=== PATIENT | female | born 1980 | race Caucasian/White ===

== ENCOUNTER 2025-02-02 23:34 | Emergency (ER) | payer OTHER ==
[~2025-02-02] VITALS: Ht 172.7 cm; Wt 97.3 kg
[~2025-02-02 23:34] MED LIST: NITR100C3 PO; ONDA-282 PO; PHEN-372 PO; SULF1TAB23 PO
[2025-02-03 00:35] LABS: KETONE, URINE AUTO RFX NEGATIVE (NEGATIVE); LEUKOCYTE ESTERASE UR AUTO RFX NEGATIVE (NEGATIVE); MUCUS, URINE RFX SMALL (NEGATIVE); NITRITE, URINE AUTO RFX NEGATIVE (NEGATIVE); RBC, URINE AUTO RFX 0 /HPF (0-3); SQUAM EPITHELIAL CELL UR AURFX 1 /HPF (0-6); WBC, URINE AUTO RFX 0 /HPF (0-3)
[2025-02-03] MEDS ORDERED: PHEN-372 PO (03:43)
[2025-02-03 04:06] VITALS: BP 133/77; TEMP 96.7; O2SAT 95
[2025-02-03] MEDS: PHENAZOPYRIDINE 100 MG TAB PO ONE (04:06)
== END 2025-02-03 04:09 | disposition home or self-care (01) ==
LOC: M ED 23:34
DX: R30.0 Dysuria (principal); Z79.899 Other long term (current) drug therapy

== ENCOUNTER 2025-04-11 08:38 | Emergency (ER) | payer OTHER, MEDICAID ==
[~2025-04-11] VITALS: Ht 172.7 cm; Wt 94.9 kg
[2025-04-11 08:40] VITALS: BP 136/79; TEMP 98.3; O2SAT 100
[2025-04-11 09:11] LABS: KETONE, URINE AUTO RFX NEGATIVE (NEGATIVE); LEUKOCYTE ESTERASE UR AUTO RFX 3+ (NEGATIVE); MUCUS, URINE RFX SMALL (NEGATIVE); NITRITE, URINE AUTO RFX NEGATIVE (NEGATIVE); RBC, URINE AUTO RFX 3 /HPF (0-3); SQUAM EPITHELIAL CELL UR AURFX 13 /HPF (0-6); WBC, URINE AUTO RFX 33 /HPF (0-3)
[2025-04-11] MEDS ORDERED: HYDR-3719 (10:19)
[2025-04-11] MEDS ORDERED: PREG150C2 (10:19)
[2025-04-11] MEDS ORDERED: OMEP40CA5 (10:19)
[2025-04-11] MEDS ORDERED: METH4PACK (10:19)
[2025-04-11] MEDS ORDERED: DULO1CAP5 (10:19)
[2025-04-11] MEDS ORDERED: PREG50CA3 (10:19)
[2025-04-11] MEDS ORDERED: ZOLP6.2526 (10:19)
[2025-04-11] MEDS ORDERED: PYRI1TAB5 PO (10:47)
== END 2025-04-11 10:53 | disposition home or self-care (01) ==
LOC: M ED 08:38
DX: R30.0 Dysuria (principal); M35.00 Sjogren syndrome, unspecified

== ENCOUNTER 2025-04-19 11:26 | Emergency (ER) | payer OTHER, MEDICAID ==
[~2025-04-19] VITALS: Ht 167.6 cm; Wt 93.2 kg
[~2025-04-19 11:26] MED LIST changes: +DULO1CAP5; +HYDR-3719; +METH4PACK; +OMEP40CA5; +PREG150C2; +PREG50CA3; +PYRI1TAB5 PO; +ZOLP6.2526
[2025-04-19 12:07] LABS: BASO # 0.0 10^3/uL (0.0-0.2); BASO % 0.7 % (0.0-1.0); EOS # 0.1 10^3/uL (0.0-0.5); EOS % 2.4 % (0.0-3.0); LYMPH # 1.3 10^3/uL (1.5-5.0); LYMPH % 42.8 % (24.0-44.0); MONO # 0.4 10^3/uL (0.0-0.8); MONO % 13.0 % (2.0-8.0); NEUTROPHILS # 1.2 10^3/uL (1.5-8.5); NEUTROPHILS % 40.8 % (36.0-66.0); PLATELET COUNT, AUTOMATED 232 10^3/uL (150-450)
[2025-04-19 13:12] LABS: CALCIUM LEVEL 8.5 MG/DL (8.5-10.1); CARBON DIOXIDE LEVEL 23 MMOL/L (20-31); CHLORIDE LEVEL 111 MMOL/L (98-107); CREATININE FOR GFR 0.73 MG/DL (0.55-1.30); GLOMERULAR FILTRATION RATE > 90.0 (>58); POTASSIUM SERUM 3.1 MMOL/L (3.5-5.1); SODIUM LEVEL 144 MMOL/L (136-145)
[2025-04-19 13:45] LABS: KETONE, URINE AUTO RFX NEGATIVE (NEGATIVE); MUCUS, URINE RFX LARGE (NEGATIVE); NITRITE, URINE AUTO RFX NEGATIVE (NEGATIVE); RBC, URINE AUTO RFX 1 /HPF (0-3); SQUAM EPITHELIAL CELL UR AURFX 8 /HPF (0-6); WBC, URINE AUTO RFX 9 /HPF (0-3)
[2025-04-19 13:46] LABS: LEUKOCYTE ESTERASE UR AUTO RFX 1+ (NEGATIVE)
[2025-04-19] MEDS: LIDOCAINE VISCOUS 2% SOLN 15 ML UDC PO ONE (14:27)
[2025-04-19] MEDS: MAALOX 30 ML SUSP *UDC PO ONE (14:27)
[2025-04-19] MEDS: NS (Normal Saline) 0.9% 1,000 ML IV ONE (14:28)
[2025-04-19] MEDS: PANTOPRAZOLE 40MG VIAL IV ONE (14:28)
[2025-04-19] MEDS: HYOSCYAMINE SULFATE 0.125 MG SUBL TABLET PO ONE (14:28)
[2025-04-19] MEDS ORDERED: ISOVUE-370 76% 100 ML VIAL As Ordered ONE (14:59)
[2025-04-19 15:02] LABS: CK-MB VALUE MASS < 1.0 NG/ML (<3.6)
[2025-04-19 15:06] LABS: CPK CREATINE PHOSPHOKINASE 50 U/L (34-145)
[2025-04-19] MEDS: POTASSIUM CHLORIDE 10MEQ SR TABLET PO ONE (15:51)
[2025-04-19] MEDS: ONDANSETRON 4MG 2ML VIAL IV ONE (15:51)
[2025-04-19 17:20] VITALS: TEMP 99
[2025-04-19] MEDS ORDERED: ONDA-282 PO (19:49)
[2025-04-19] MEDS ORDERED: SUCR1SS PO (19:49)
[2025-04-19 19:57] VITALS: BP 118/66; O2SAT 97
== END 2025-04-19 20:08 | disposition home or self-care (01) ==
LOC: M ED 11:26
DX: D72.819 Decreased white blood cell count, unspecified (principal); K21.9 Gastro-esophageal reflux disease without esophagitis; R11.10 Vomiting, unspecified; I10 Essential (primary) hypertension; M32.9 Systemic lupus erythematosus, unspecified; Z79.899 Other long term (current) drug therapy
CPT/HCPCS: 74177; 80048; 80503; 81001; 82550; 82553; 83605; 84484; 85025; 87086; 87486; 87581; 87633; 87798; 93005; 96361; 96374; 96375; 99284; J2405; J2470; Q9967

== ENCOUNTER → 2025-05-03 | Outpatient (REF) | payer OTHER ==
[~2025-05-03] MED LIST changes: +SUCR1SS PO
[2025-05-03 17:59] LABS: APPEARANCE, URINE HAZY (CLEAR); BACTERIA, URINE AUTO NEGATIVE (NEGATIVE); BILIRUBIN, URINE AUTO 1+ (NEGATIVE); BLOOD, URINE BLOOD NEGATIVE (NEGATIVE); CALCIUM OXALATE CRYSTALS SMALL; GLUCOSE, URINE (UA) AUTO NEGATIVE (NEGATIVE); KETONE, URINE AUTO NEGATIVE (NEGATIVE); LEUKOCYTE ESTERASE, URINE AUTO 2+ (NEGATIVE); MUCUS, URINE SMALL (NEGATIVE); NITRITE, URINE AUTO NEGATIVE (NEGATIVE); PROTEIN, URINE AUTO 1+ mg/dL (NEGATIVE); RBC, URINE AUTO 2 /HPF (0-3); SPECIFIC GRAVITY URINE AUTO 1.032 (1.002-1.035); SQUAMOUS EPITHELIAL CELL UR AU 5 /HPF (0-6); UROBILINOGEN, URINE AUTO 0.2 mg/dL (0.0-2.0); WBC, URINE AUTO 5 /HPF (0-3)
[2025-05-03 18:07] LABS: ALT/SGPT 20 U/L (7.0-40); AST/SGOT 20 U/L (<34); CALCIUM LEVEL 8.3 MG/DL (8.5-10.1); CARBON DIOXIDE LEVEL 24 MMOL/L (20-31); CHLORIDE LEVEL 108 MMOL/L (98-107); CREATININE FOR GFR 0.68 MG/DL (0.55-1.30); GLOMERULAR FILTRATION RATE > 90.0 (>58); POTASSIUM SERUM 3.6 MMOL/L (3.5-5.1); RHEUMATOID FACTOR QUANT < 3.5 IU/ML (<14); SODIUM LEVEL 144 MMOL/L (136-145)
[2025-05-03 18:11] LABS: HEPATITIS B SURFACE ANTIBODY NEGATIVE (POSITIVE); VITAMIN B12 LEVEL 302 PG/ML (211-911)
[2025-05-03 18:14] LABS: BASO # 0.0 10^3/uL (0.0-0.2); BASO % 0.7 % (0.0-1.0); EOS # 0.0 10^3/uL (0.0-0.5); EOS % 1.3 % (0.0-3.0); LYMPH # 0.4 10^3/uL (1.5-5.0); LYMPH % 28.9 % (24.0-44.0); MONO # 0.1 10^3/uL (0.0-0.8); MONO % 6.6 % (2.0-8.0); NEUTROPHILS % 59.2 % (36.0-66.0); PLATELET COUNT, AUTOMATED 121 10^3/uL (150-450)
[2025-05-03 18:43] LABS: HEPATITIS C VIRUS ABY INDEX < 0.02 INDEX (<0.8)
[2025-05-03 19:37] LABS: NEUTROPHILS # 0.9 10^3/uL (1.5-8.5)
[2025-05-04 16:55] LABS: TOTAL PROTEIN,RANDOM URINE 74.5 MG/DL (0.0-14.0)
[2025-05-04 18:08] LABS: CRYOGLOBULINS NEGATIVE (NEGATIVE)
[2025-05-05 07:06] LABS: PROTEIN, TOTAL SO 6.1 g/dL (6.1-8.1)
[2025-05-06 06:37] LABS: ALBUMIN SO 3.8 g/dL (3.8-4.8); ALPHA 1 GLOBULINS SO 0.3 g/dL (0.2-0.3); ALPHA 2 GLOBULINS SO 0.5 g/dL (0.5-0.9); BETA 2 GLOBULIN SO 0.3 g/dL (0.2-0.5); BETA GLOBULIN SO 0.4 g/dL (0.4-0.6); GAMMA GLOBULINS SO 0.7 g/dL (0.8-1.7)
== END ==
LOC: M SFHCLERA 10:32
PROVIDERS: ATTEND Internal Medicine
DX: M35.00 Sjogren syndrome, unspecified (principal); D70.8 Other neutropenia

== ENCOUNTER → 2025-05-09 | Outpatient (REF) | payer OTHER ==
[2025-05-09 18:23] LABS: ALT/SGPT 18 U/L (7.0-40); AST/SGOT 18 U/L (<34); CALCIUM LEVEL 8.2 MG/DL (8.5-10.1); CARBON DIOXIDE LEVEL 25 MMOL/L (20-31); CHLORIDE LEVEL 110 MMOL/L (98-107); CREATININE FOR GFR 0.69 MG/DL (0.55-1.30); GLOMERULAR FILTRATION RATE > 90.0 (>58); POTASSIUM SERUM 3.3 MMOL/L (3.5-5.1); SODIUM LEVEL 144 MMOL/L (136-145)
[2025-05-09 18:27] LABS: BASO # 0.0 10^3/uL (0.0-0.2); BASO % 0.3 % (0.0-1.0); EOS # 0.2 10^3/uL (0.0-0.5); EOS % 5.4 % (0.0-3.0); LYMPH # 1.9 10^3/uL (1.5-5.0); LYMPH % 57.1 % (24.0-44.0); MONO # 0.5 10^3/uL (0.0-0.8); MONO % 14.6 % (2.0-8.0); NEUTROPHILS % 22.3 % (36.0-66.0); PLATELET COUNT, AUTOMATED 108 10^3/uL (150-450)
[2025-05-09 20:10] LABS: NEUTROPHILS # 0.8 10^3/uL (1.5-8.5)
== END ==
LOC: M SFHCLERA 09:44
PROVIDERS: ATTEND Internal Medicine
DX: T45.1X5A Adverse effect of antineoplastic and immunosuppressive drugs, initial encounter (principal)

== ENCOUNTER → 2025-05-18 | Outpatient (REF) | payer OTHER ==
[~2025-05-18] MED LIST changes: +CARA1TAB6 PO; +CEFD300C PO; +CYPR4TAB36; +HYDR200T46; +HYDR50TA70; +LYRI200C PO; +NABU-71
[2025-05-18 10:50] LABS: BASO # 0.0 10^3/uL (0.0-0.2); BASO % 0.3 % (0.0-1.0); EOS # 0.1 10^3/uL (0.0-0.5); EOS % 2.3 % (0.0-3.0); LYMPH # 1.1 10^3/uL (1.5-5.0); LYMPH % 28.2 % (24.0-44.0); MONO # 0.5 10^3/uL (0.0-0.8); MONO % 12.5 % (2.0-8.0); NEUTROPHILS # 2.2 10^3/uL (1.5-8.5); NEUTROPHILS % 56.2 % (36.0-66.0); PLATELET COUNT, AUTOMATED 332 10^3/uL (150-450)
[2025-05-19 14:22] LABS: FREE KAPPA LIGHT CHAINS SERUM 26.8 mg/L (3.3-19.4); FREE LAMBDA LIGHT CHAINS SERUM 29.3 mg/L (5.7-26.3); KAPPA/LAMBDA RATIO SERUM 0.91 (0.26-1.65)
[2025-05-20 15:22] LABS: PROTEIN CREATININE RATIO 345 mg/g creat (24-184); T PROTEIN CREATININE RATIO 0.345 (0.024-0.184); UPEP CREATININE 200 mg/dL (20-275); UPEP TOTAL PROTEIN 69 mg/dL (5-24)
== END ==
LOC: M PLALAB 10:31
PROVIDERS: ATTEND Nurse Practitioner Family
DX: M35.00 Sjogren syndrome, unspecified (principal); R60.0 Localized edema; R77.8 Other specified abnormalities of plasma proteins

== ENCOUNTER → 2025-05-18 | Outpatient (REF) | payer OTHER ==
[2025-05-18 10:50] LABS: BASO # 0.0 10^3/uL (0.0-0.2); BASO % 0.5 % (0.0-1.0); EOS # 0.1 10^3/uL (0.0-0.5); EOS % 1.6 % (0.0-3.0); LYMPH # 1.1 10^3/uL (1.5-5.0); LYMPH % 29.8 % (24.0-44.0); MONO # 0.5 10^3/uL (0.0-0.8); MONO % 13.9 % (2.0-8.0); NEUTROPHILS # 2.1 10^3/uL (1.5-8.5); NEUTROPHILS % 53.9 % (36.0-66.0); PLATELET COUNT, AUTOMATED 317 10^3/uL (150-450)
[2025-05-18 10:54] LABS: CALCIUM LEVEL 8.7 MG/DL (8.5-10.1); CARBON DIOXIDE LEVEL 23.0 MMOL/L (20-31); CHLORIDE LEVEL 109.0 MMOL/L (98-107); CREATININE FOR GFR 0.89 MG/DL (0.55-1.30); GLOMERULAR FILTRATION RATE 81.4 (>58); POTASSIUM SERUM 3.9 MMOL/L (3.5-5.1); SODIUM LEVEL 143.0 MMOL/L (136-145)
== END ==
LOC: M PLALAB 10:30
PROVIDERS: ATTEND Internal Medicine
DX: D64.9 Anemia, unspecified (principal)

== ENCOUNTER 2025-05-19 15:56 | Emergency (ER) | payer OTHER ==
[~2025-05-19] VITALS: Ht 152.4 cm; Wt 90.9 kg
[~2025-05-19 15:56] MED LIST changes: -CARA1TAB6 PO; -CEFD300C PO; -CYPR4TAB36; -DULO1CAP5; +DULO1CAP5 PO; -HYDR200T46; -HYDR50TA70; -LYRI200C PO; -NABU-71
[2025-05-19] MEDS ORDERED: HYDR200T46 PO (16:07)
[2025-05-19] MEDS ORDERED: NABU-71 (16:07)
[2025-05-19] MEDS ORDERED: CYPR4TAB36 (16:07)
[2025-05-19] MEDS ORDERED: LYRI200C PO (16:07)
[2025-05-19] MEDS ORDERED: HYDR50TA70 (16:07)
[2025-05-19 16:47] LABS: BASO # 0.0 10^3/uL (0.0-0.2); BASO % 0.3 % (0.0-1.0); EOS # 0.0 10^3/uL (0.0-0.5); EOS % 0.0 % (0.0-3.0); LYMPH # 1.5 10^3/uL (1.5-5.0); LYMPH % 40.1 % (24.0-44.0); MONO # 0.4 10^3/uL (0.0-0.8); MONO % 10.3 % (2.0-8.0); NEUTROPHILS # 1.8 10^3/uL (1.5-8.5); NEUTROPHILS % 49.0 % (36.0-66.0); PLATELET COUNT, AUTOMATED 298 10^3/uL (150-450)
[2025-05-19 17:21] LABS: ALT/SGPT 13 U/L (7.0-40); AST/SGOT 19 U/L (<34); CALCIUM LEVEL 8.4 MG/DL (8.5-10.1); CARBON DIOXIDE LEVEL 22 MMOL/L (20-31); CHLORIDE LEVEL 109 MMOL/L (98-107); CK-MB VALUE MASS < 1.0 NG/ML (<3.6); CREATININE FOR GFR 0.65 MG/DL (0.55-1.30); GLOMERULAR FILTRATION RATE > 90.0 (>58); POTASSIUM SERUM 3.3 MMOL/L (3.5-5.1); SODIUM LEVEL 141 MMOL/L (136-145)
[2025-05-19 17:22] LABS: CPK CREATINE PHOSPHOKINASE 51 U/L (34-145)
[2025-05-19 17:34] LABS: HCG, SERUM QUALITATIVE NEGATIVE (NEGATIVE)
[2025-05-19] MEDS: NS (Normal Saline) 0.9% 1,000 ML IV ONE (18:20)
[2025-05-19] MEDS: PANTOPRAZOLE 40MG VIAL IV ONE (18:20)
[2025-05-19] MEDS: ONDANSETRON 4MG/2ML VIAL IV ONE (18:20)
[2025-05-19] MEDS: SUCRALFATE 1 GM TAB PO ONE (18:20)
[2025-05-19 18:42] VITALS: TEMP 100.3
[2025-05-19 18:47] LABS: KETONE, URINE AUTO RFX NEGATIVE (NEGATIVE); LEUKOCYTE ESTERASE UR AUTO RFX 3+ (NEGATIVE); MUCUS, URINE RFX MODERATE (NEGATIVE); NITRITE, URINE AUTO RFX POSITIVE (NEGATIVE); RBC, URINE AUTO RFX 3 /HPF (0-3); SQUAM EPITHELIAL CELL UR AURFX 4 /HPF (0-6); WBC, URINE AUTO RFX TNTC /HPF (0-3)
[2025-05-19] MEDS: cefTRIAXone SOD 1 GM in DEXTROSE 5% (D5W) ADV/MINI-BAG 50 ML IV ONE (19:46)
[2025-05-19] MEDS: ACETAMINOPHEN 500 MG TAB PO ONE (19:46)
[2025-05-19 20:16] VITALS: BP 119/76
[2025-05-19] MEDS ORDERED: CEFD300C PO (20:37)
[2025-05-19] MEDS ORDERED: CARA1TAB6 PO (20:37)
[2025-05-19] MEDS ORDERED: ONDA-282 PO (20:37)
[2025-05-19 20:41] VITALS: O2SAT 99
== END 2025-05-19 20:56 | disposition home or self-care (01) ==
LOC: M ED 15:56
DX: N10 Acute pyelonephritis (principal); I10 Essential (primary) hypertension; K21.9 Gastro-esophageal reflux disease without esophagitis; M35.00 Sjogren syndrome, unspecified; Z79.899 Other long term (current) drug therapy
CPT/HCPCS: 71045; 80048; 80076; 81001; 82550; 82553; 83605; 83690; 84484; 84703; 85025; 87088; 87186; 93005; 93041; 94760; 96374; 96375; 99285; J0696; J2405; J2470

== ENCOUNTER → 2025-05-24 | Outpatient (REF) | payer MEDICAID, OTHER ==
[~2025-05-24] MED LIST changes: +CARA1TAB6 PO; +CEFD1CAP9; +CEFD300C PO; +CEFP200T; +CYPR4TAB36; +HYDR200T46 PO; +HYDR50TA70; +LYRI200C PO; +METH-1164; +NABU-71; +POTA-298 PO
[2025-05-24 19:01] LABS: ALT/SGPT 12 U/L (7.0-40); AST/SGOT 13 U/L (<34); CALCIUM LEVEL 8.7 MG/DL (8.5-10.1); CARBON DIOXIDE LEVEL 21 MMOL/L (20-31); CHLORIDE LEVEL 110 MMOL/L (98-107); CREATININE FOR GFR 0.70 MG/DL (0.55-1.30); GLOMERULAR FILTRATION RATE > 90.0 (>58); POTASSIUM SERUM 3.5 MMOL/L (3.5-5.1); SODIUM LEVEL 143 MMOL/L (136-145)
[2025-05-24 19:10] LABS: BASO # 0.0 10^3/uL (0.0-0.2); BASO % 0.2 % (0.0-1.0); EOS # 0.0 10^3/uL (0.0-0.5); EOS % 0.0 % (0.0-3.0); LYMPH # 1.3 10^3/uL (1.5-5.0); LYMPH % 27.3 % (24.0-44.0); MONO # 0.4 10^3/uL (0.0-0.8); MONO % 8.4 % (2.0-8.0); NEUTROPHILS # 3.1 10^3/uL (1.5-8.5); NEUTROPHILS % 63.9 % (36.0-66.0); PLATELET COUNT, AUTOMATED 286 10^3/uL (150-450)
[2025-05-26 07:49] LABS: PROTEIN, TOTAL SO 6.8 g/dL (6.1-8.1)
== END ==
LOC: M SFHCLERA 10:18
PROVIDERS: ATTEND Internal Medicine
DX: N39.0 Urinary tract infection, site not specified (principal); R77.9 Abnormality of plasma protein, unspecified

== ENCOUNTER 2025-05-26 10:06 | Emergency (ER) | payer OTHER ==
[~2025-05-26] VITALS: Ht 162.6 cm; Wt 98.4 kg
[~2025-05-26 10:06] MED LIST changes: -CEFD1CAP9; -CEFP200T; -METH-1164; -POTA-298 PO
[2025-05-26] MEDS ORDERED: CEFP200T (10:20)
[2025-05-26] MEDS ORDERED: METH-1164 (10:20)
[2025-05-26] MEDS ORDERED: CEFD1CAP9 (10:20)
[2025-05-26 11:35] LABS: BASO # 0.0 10^3/uL (0.0-0.2); BASO % 0.2 % (0.0-1.0); EOS # 0.0 10^3/uL (0.0-0.5); EOS % 0.4 % (0.0-3.0); LYMPH # 1.7 10^3/uL (1.5-5.0); LYMPH % 19.9 % (24.0-44.0); MONO # 0.7 10^3/uL (0.0-0.8); MONO % 7.9 % (2.0-8.0); NEUTROPHILS # 6.1 10^3/uL (1.5-8.5); NEUTROPHILS % 71.2 % (36.0-66.0); PLATELET COUNT, AUTOMATED 239 10^3/uL (150-450)
[2025-05-26 12:02] LABS: CALCIUM LEVEL 8.9 MG/DL (8.5-10.1); CARBON DIOXIDE LEVEL 21 MMOL/L (20-31); CHLORIDE LEVEL 112 MMOL/L (98-107); CREATININE FOR GFR 0.76 MG/DL (0.55-1.30); GLOMERULAR FILTRATION RATE > 90.0 (>58); POTASSIUM SERUM 2.8 MMOL/L (3.5-5.1); SODIUM LEVEL 145 MMOL/L (136-145)
[2025-05-26] MEDS: POTASSIUM CHLORIDE 10MEQ SR TABLET PO ONE (12:14)
[2025-05-26 12:26] LABS: ALT/SGPT 13 U/L (7.0-40); AST/SGOT 15 U/L (<34); CK-MB VALUE MASS < 1.0 NG/ML (<3.6); CPK CREATINE PHOSPHOKINASE 63 U/L (34-145)
[2025-05-26 13:13] LABS: KETONE, URINE AUTO RFX NEGATIVE (NEGATIVE); MUCUS, URINE RFX SMALL (NEGATIVE); NITRITE, URINE AUTO RFX NEGATIVE (NEGATIVE); RBC, URINE AUTO RFX 1 /HPF (0-3); SQUAM EPITHELIAL CELL UR AURFX 14 /HPF (0-6); WBC, URINE AUTO RFX 4 /HPF (0-3)
[2025-05-26 13:14] LABS: LEUKOCYTE ESTERASE UR AUTO RFX TRACE (NEGATIVE)
[2025-05-26 13:15] VITALS: O2SAT 93
[2025-05-26 13:30] VITALS: BP 148/84
[2025-05-26] MEDS ORDERED: POTA-298 PO (13:30)
[2025-05-26 13:35] VITALS: TEMP 97.7
[2025-05-28] MEDS ORDERED: BUPR150T12 (10:08)
[2025-05-28] MEDS ORDERED: QUET1TAB17 (10:08)
[2025-05-28] MEDS ORDERED: DULO1CAP6 (10:08)
== END 2025-05-26 13:46 | disposition home or self-care (01) ==
LOC: M ED 10:06
DX: R30.0 Dysuria (principal); E87.6 Hypokalemia; I10 Essential (primary) hypertension; M32.9 Systemic lupus erythematosus, unspecified; Z79.899 Other long term (current) drug therapy

== ENCOUNTER 2025-05-28 09:55 | Emergency (ER) | payer OTHER ==
[~2025-05-28] VITALS: Ht 165.1 cm; Wt 89.2 kg
[~2025-05-28 09:55] MED LIST changes: +CEFD1CAP9; +CEFP200T PO; -CYPR4TAB36; +CYPR4TAB36 PO; +HYDR-3719 PO; -HYDR50TA70; +HYDR50TA70 PO; +METH-1164 PO; -OMEP40CA5; +OMEP40CA5 PO; +POTA-298 PO; -PREG150C2; +PREG150C2 PO; -PREG50CA3; +PREG50CA3 PO; -ZOLP6.2526; +ZOLP6.2526 PO
[2025-05-28] MEDS ORDERED: BUPR150T12 PO (10:08)
[2025-05-28] MEDS ORDERED: DULO1CAP6 PO (10:08)
[2025-05-28] MEDS ORDERED: QUET1TAB17 PO (10:08)
[2025-05-28] MEDS: LIDOCAINE VISCOUS 2% SOLN 15 ML UDC PO ONE (10:37)
[2025-05-28] MEDS: MAALOX 30 ML SUSP *UDC PO ONE (10:37)
[2025-05-28 10:39] LABS: KETONE, URINE AUTO RFX NEGATIVE (NEGATIVE); LEUKOCYTE ESTERASE UR AUTO RFX 2+ (NEGATIVE); MUCUS, URINE RFX SMALL (NEGATIVE); NITRITE, URINE AUTO RFX NEGATIVE (NEGATIVE); RBC, URINE AUTO RFX 2 /HPF (0-3); SQUAM EPITHELIAL CELL UR AURFX 12 /HPF (0-6); WBC, URINE AUTO RFX 12 /HPF (0-3)
[2025-05-28 12:12] VITALS: BP 147/73; TEMP 98.8; O2SAT 98
[2025-05-29] MEDS ORDERED: PRED10TA2 PO (14:48)
[2025-05-29] MEDS ORDERED: ONDA-282 PO (14:48)
[2025-05-29] MEDS ORDERED: TRIA1CR80 TOP (14:48)
== END 2025-05-28 12:15 | disposition home or self-care (01) ==
LOC: M ED 09:55
DX: N39.0 Urinary tract infection, site not specified (principal); I10 Essential (primary) hypertension; K21.9 Gastro-esophageal reflux disease without esophagitis; M32.9 Systemic lupus erythematosus, unspecified; Z79.1 Long term (current) use of non-steroidal anti-inflammatories (NSAID); Z79.899 Other long term (current) drug therapy; Z79.52 Long term (current) use of systemic steroids

== ENCOUNTER 2025-05-29 09:28 | Inpatient (IN) | payer OTHER ==
[~2025-05-29] VITALS: Ht 162.6 cm; Wt 87.6 kg
[~2025-05-29 09:28] MED LIST changes: +BUPR150T12 PO; +DULO1CAP6 PO; +QUET1TAB17 PO
[2025-05-29] MEDS: ACETAMINOPHEN *IV* 1,000 MG in IV 1 EA IV ONE (11:41)
[2025-05-29 11:55] LABS: BASO # 0.0 10^3/uL (0.0-0.2); BASO % 0.2 % (0.0-1.0); EOS # 0.0 10^3/uL (0.0-0.5); EOS % 0.6 % (0.0-3.0); LYMPH # 1.5 10^3/uL (1.5-5.0); LYMPH % 31.2 % (24.0-44.0); MONO # 0.5 10^3/uL (0.0-0.8); MONO % 10.5 % (2.0-8.0); NEUTROPHILS # 2.7 10^3/uL (1.5-8.5); NEUTROPHILS % 57.3 % (36.0-66.0); PLATELET COUNT, AUTOMATED 222 10^3/uL (150-450)
[2025-05-29 12:28] LABS: CALCIUM LEVEL 8.6 MG/DL (8.5-10.1); CARBON DIOXIDE LEVEL 22 MMOL/L (20-31); CHLORIDE LEVEL 110 MMOL/L (98-107); CREATININE FOR GFR 0.66 MG/DL (0.55-1.30); GLOMERULAR FILTRATION RATE > 90.0 (>58); POTASSIUM SERUM 3.0 MMOL/L (3.5-5.1); SODIUM LEVEL 143 MMOL/L (136-145)
[2025-05-29] MEDS ORDERED: ONDA-282 PO (14:48)
[2025-05-29] MEDS ORDERED: TRIA1CR80 TOP (14:48)
[2025-05-29] MEDS ORDERED: PRED10TA2 PO (14:48)
[2025-05-29] MEDS ORDERED: HOME MED LIST COMPLETE! XX SCH (14:50)
[2025-05-29] MEDS ORDERED: ONDANSETRON 4MG ORAL DISINTEGRATING TAB PO PRN (16:20)
[2025-05-29] MEDS ORDERED: TRIAMCINOLONE ACET 0.1% CREAM 80GM TOP PRN (16:20)
[2025-05-29] MEDS ORDERED: CYPROHEPTADINE 4 MG TAB PO PRN (16:20)
[2025-05-29] MEDS: POTASSIUM CHLORIDE 10MEQ SR TABLET PO SCH (16:26)
[2025-05-29] MEDS: KCL 20MEQ in NS 1000ML 1,000 ML IV SCH (16:26)
[2025-05-29 16:34] LABS: MAGNESIUM LEVEL 1.8 MG/DL (1.8-2.4)
[2025-05-29 17:38] VITALS: TEMP 97.6; O2SAT 100
[2025-05-29] MEDS: buPROPion **XL** 150 MG TABLET PO SCH (19:11)
[2025-05-29 20:00] VITALS: BP 116/75; TEMP 100.6; O2SAT 98
[2025-05-29] MEDS ORDERED: CEFPODOXIME PROXETIL 200 MG TABLET PO SCH (21:00)
[2025-05-29] MEDS: PREGABALIN 100 MG CAP PO SCH (21:44)
[2025-05-29] MEDS: ASPIRIN 81 MG CHEWABLE TABLET PO SCH (21:44)
[2025-05-29] MEDS: CEFPODOXIME PROXETIL 200 MG TABLET PO SCH (21:44)
[2025-05-29] MEDS: OMEPRAZOLE 20MG CAP PO SCH (21:45)
[2025-05-29] MEDS: HYDROXYCHLOROQUINE 200 MG TAB PO SCH (21:46)
[2025-05-29] MEDS: MAG SULF 1GM/100ML (MAG RUN) 1 GM in IV 1 EA IV ONE (21:46)
[2025-05-29] MEDS: ACETAMINOPHEN 325 MG TAB PO PRN (21:46)
[2025-05-29] MEDS: MICONAZOLE-7 VAGINAL 2% CREAM 47.7 GM PV SCH (21:47)
[2025-05-29 22:24] LABS: ALT/SGPT 13.0 U/L (7.0-40); AST/SGOT 16.0 U/L (<34)
[2025-05-30 00:23] VITALS: BP 117/74; TEMP 99.4; O2SAT 97
[2025-05-30 04:00] VITALS: BP 109/70; TEMP 99.8; O2SAT 98
[2025-05-30 06:11] LABS: PLATELET COUNT, AUTOMATED 199 10^3/uL (150-450)
[2025-05-30 06:25] LABS: CALCIUM LEVEL 8.0 MG/DL (8.5-10.1); CARBON DIOXIDE LEVEL 21 MMOL/L (20-31); CHLORIDE LEVEL 113 MMOL/L (98-107); CREATININE FOR GFR 0.58 MG/DL (0.55-1.30); GLOMERULAR FILTRATION RATE > 90.0 (>58); POTASSIUM SERUM 3.4 MMOL/L (3.5-5.1); SODIUM LEVEL 145 MMOL/L (136-145)
[2025-05-30 07:44] LABS: APPEARANCE, URINE CLOUDY (CLEAR); BACTERIA, URINE AUTO 1+ (NEGATIVE); BILIRUBIN, URINE AUTO 1+ (NEGATIVE); BLOOD, URINE BLOOD NEGATIVE (NEGATIVE); CALCIUM OXALATE CRYSTALS LARGE; GLUCOSE, URINE (UA) AUTO NEGATIVE (NEGATIVE); KETONE, URINE AUTO NEGATIVE (NEGATIVE); LEUKOCYTE ESTERASE, URINE AUTO 2+ (NEGATIVE); MUCUS, URINE LARGE (NEGATIVE); NITRITE, URINE AUTO NEGATIVE (NEGATIVE); PROTEIN, URINE AUTO 2+ mg/dL (NEGATIVE); RBC, URINE AUTO 53 /HPF (0-3); SPECIFIC GRAVITY URINE AUTO 1.032 (1.002-1.035); SQUAMOUS EPITHELIAL CELL UR AU 20 /HPF (0-6); UROBILINOGEN, URINE AUTO 0.2 mg/dL (0.0-2.0); WBC, URINE AUTO 61 /HPF (0-3)
[2025-05-30] MEDS: POTASSIUM CHLORIDE 10MEQ SR TABLET PO SCH (08:14)
[2025-05-30 11:38] VITALS: BP 114/75; TEMP 98.3; O2SAT 98
[2025-05-30 19:54] VITALS: BP 117/65; TEMP 97.6; O2SAT 100
[2025-05-30] MEDS: predniSONE 10 MG TAB PO SCH (20:47)
[2025-05-30 23:50] VITALS: BP 118/68; TEMP 97.6; O2SAT 99
[2025-05-31] VITALS (9 sets, daily range): BP systolic 109–159; BP diastolic 67–88; TEMP 97.7–99.2; O2SAT 95–99
[2025-05-31 06:19] LABS: PLATELET COUNT, AUTOMATED 191 10^3/uL (150-450)
[2025-05-31 06:40] LABS: CALCIUM LEVEL 8.0 MG/DL (8.5-10.1); CARBON DIOXIDE LEVEL 21 MMOL/L (20-31); CHLORIDE LEVEL 110 MMOL/L (98-107); CREATININE FOR GFR 0.46 MG/DL (0.55-1.30); GLOMERULAR FILTRATION RATE > 90.0 (>58); POTASSIUM SERUM 4.1 MMOL/L (3.5-5.1); SODIUM LEVEL 141 MMOL/L (136-145)
[2025-05-31] MEDS: LR 1,000 ML IV SCH (08:08)
[2025-05-31] MEDS ORDERED: MIDAZOLAM INJ 2 MG/2 ML VIAL As Ordered ONE (08:37)
[2025-05-31] MEDS ORDERED: ROCURONIUM BROMIDE 50MG/5ML VIAL As Ordered ONE (08:37)
[2025-05-31] MEDS ORDERED: SUGAMMADEX SODIUM 200 MG/2 ML VIAL As Ordered ONE (08:37)
[2025-05-31] MEDS ORDERED: LIDOCAINE 2% 100 MG/5 ML SDV (FOR ANES.) As Ordered ONE (08:37)
[2025-05-31] MEDS ORDERED: dexAMETHasone 4 MG/ML 1 ML VIAL As Ordered ONE (08:38)
[2025-05-31] MEDS ORDERED: KETOROLAC 30 MG/ML 1 ML VIAL As Ordered ONE (08:38)
[2025-05-31] MEDS ORDERED: ONDANSETRON 4MG/2ML VIAL As Ordered ONE (08:38)
[2025-05-31 08:49] LABS: URINE PREG TEST NEGATIVE (NEGATIVE)
[2025-05-31] MEDS ORDERED: predniSONE 10 MG TAB PO SCH (09:00)
[2025-05-31] MEDS ORDERED: SUCCINYLCHOLINE 100MG/5ML SYRINGE As Ordered ONE (09:41)
[2025-05-31] MEDS: MIDAZOLAM INJ 2 MG/2 ML VIAL IV PRN (10:03)
[2025-05-31] MEDS: LIDOCAINE 1% SDV 5 ML VIAL PN ONE (10:04)
[2025-05-31] MEDS: ROPIvacaine 0.5% 30ML VIAL PN ONE (10:04)
[2025-05-31] MEDS ORDERED: ACETAMINOPHEN 1000MG/100ML IV BAG As Ordered ONE (11:12)
[2025-05-31] MEDS ORDERED: HYDROmorphone HCL 2 MG/ML 1 ML VIAL As Ordered ONE (11:18)
[2025-05-31] MEDS ORDERED: MORPHINE 2 MG/ML 1 ML VIAL IV PRN (12:10)
[2025-05-31] MEDS ORDERED: HYDROMORPHONE HCL 0.5 MG/0.5 ML SYRINGE IV PRN (12:10)
[2025-05-31] MEDS: ceFAZolin SODIUM 2 GM in DEXTROSE 5% (D5W) ADV/MINI-BAG 50 ML IV SCH (18:06)
[2025-05-31] MEDS: FLUCONAZOLE 50 MG TABLET PO ONE (18:32)
[2025-05-31] MEDS: ENOXAPARIN 40 MG/0.4 ML SYRINGE (J1650 PER 10MG) SC SCH (21:53)
[2025-06-01] VITALS: BP 133/79; TEMP 99.5; O2SAT 98
[2025-06-01 04:00] VITALS: BP 116/77; TEMP 98.6; O2SAT 98
[2025-06-01 05:53] LABS: PLATELET COUNT, AUTOMATED 176 10^3/uL (150-450)
[2025-06-01 06:17] LABS: CALCIUM LEVEL 8.3 MG/DL (8.5-10.1); CARBON DIOXIDE LEVEL 23 MMOL/L (20-31); CHLORIDE LEVEL 109 MMOL/L (98-107); CREATININE FOR GFR 0.57 MG/DL (0.55-1.30); GLOMERULAR FILTRATION RATE > 90.0 (>58); POTASSIUM SERUM 4.3 MMOL/L (3.5-5.1); SODIUM LEVEL 142 MMOL/L (136-145)
[2025-06-01] MEDS: predniSONE 10 MG TAB PO SCH (09:00)
[2025-06-01] MEDS ORDERED: FLUCONAZOLE 50 MG TABLET PO ONE (10:00)
[2025-06-01] MEDS ORDERED: ASPI81TA26 PO (11:35)
[2025-06-01 12:07] VITALS: BP 133/81; TEMP 98.1; O2SAT 98
== END 2025-06-01 15:05 | disposition home or self-care (01) | DRG 313 ==
LOC: M ED 09:28 → EDBD 09:28 → M ED INP 16:25 → M MS4PR 17:50
PROVIDERS: ADMIT Student in an Organized Health Care Education/Training Program; ATTEND Student in an Organized Health Care Education/Training Program
PROC: 0SSF04Z Reposition Right Ankle Joint with Internal Fixation Device, Open Approach (ICD-10-PCS; principal; 2025-05-31 09:30)
DX: S82.854A Nondisplaced trimalleolar fracture of right lower leg, initial encounter for closed fracture (principal); M32.9 Systemic lupus erythematosus, unspecified; M35.00 Sjogren syndrome, unspecified; S82.831A Other fracture of upper and lower end of right fibula, initial encounter for closed fracture; F39 Unspecified mood [affective] disorder; G89.29 Other chronic pain; K21.9 Gastro-esophageal reflux disease without esophagitis; G47.00 Insomnia, unspecified; Z79.2 Long term (current) use of antibiotics; Z79.899 Other long term (current) drug therapy; W17.89XA Other fall from one level to another, initial encounter; Y92.009 Unspecified place in unspecified non-institutional (private) residence as the place of occurrence of the external cause; E87.6 Hypokalemia

== ENCOUNTER 2025-06-08 09:46 | Emergency (ER) | payer MEDICAID, OTHER ==
[~2025-06-08] VITALS: Ht 167.6 cm; Wt 95.5 kg
[~2025-06-08 09:46] MED LIST changes: -NABU-71 PO; -SUCR1TAB56 PO
[2025-06-08 10:32] LABS: BASO # 0.0 10^3/uL (0.0-0.2); BASO % 0.2 % (0.0-1.0); EOS # 0.0 10^3/uL (0.0-0.5); EOS % 0.0 % (0.0-3.0); LYMPH # 0.6 10^3/uL (1.5-5.0); LYMPH % 9.5 % (24.0-44.0); MONO # 0.1 10^3/uL (0.0-0.8); MONO % 1.7 % (2.0-8.0); NEUTROPHILS # 5.1 10^3/uL (1.5-8.5); NEUTROPHILS % 88.1 % (36.0-66.0); PLATELET COUNT, AUTOMATED 257 10^3/uL (150-450)
[2025-06-08 11:00] LABS: CK-MB VALUE MASS < 1.0 NG/ML (<3.6)
[2025-06-08 11:03] LABS: CALCIUM LEVEL 8.5 MG/DL (8.5-10.1); CARBON DIOXIDE LEVEL 19 MMOL/L (20-31); CHLORIDE LEVEL 113 MMOL/L (98-107); CPK CREATINE PHOSPHOKINASE 52 U/L (34-145); CREATININE FOR GFR 0.64 MG/DL (0.55-1.30); GLOMERULAR FILTRATION RATE > 90.0 (>58); POTASSIUM SERUM 3.9 MMOL/L (3.5-5.1); SODIUM LEVEL 144 MMOL/L (136-145)
[2025-06-08] MEDS: NS (Normal Saline) 0.9% 1,000 ML IV ONE (11:59)
[2025-06-08] MEDS ORDERED: SUCR1TAB56 PO (13:05)
[2025-06-08] MEDS ORDERED: ASPI81TA26 PO (13:05)
[2025-06-08] MEDS ORDERED: POTA-298 PO (13:05)
[2025-06-08] MEDS ORDERED: NABU-71 PO (13:05)
[2025-06-08] MEDS ORDERED: HOME MED LIST COMPLETE! XX SCH (13:05)
[2025-06-08 13:30] VITALS: BP 139/93; O2SAT 97
[2025-06-08 13:51] VITALS: TEMP 99.6
== END 2025-06-08 13:47 | disposition home or self-care (01) ==
LOC: M ED 09:46
DX: I95.1 Orthostatic hypotension (principal); I10 Essential (primary) hypertension; F32.A Depression, unspecified; F41.9 Anxiety disorder, unspecified; K21.9 Gastro-esophageal reflux disease without esophagitis; M35.00 Sjogren syndrome, unspecified; Z79.899 Other long term (current) drug therapy

== ENCOUNTER → 2025-06-08 | Outpatient (CLI) | payer MEDICAID, OTHER ==
[~2025-06-08] MED LIST changes: +ASPI81TA26 PO; +NABU-71 PO; +PRED10TA2 PO; +SUCR1TAB56 PO; +SULF-7 PO; -SULF1TAB23 PO; +TRIA1CR80 TOP
== END ==
LOC: M SOG 09:16
PROVIDERS: ATTEND Orthopaedic Surgery
DX: Z47.89 Encounter for other orthopedic aftercare (principal); Z53.9 Procedure and treatment not carried out, unspecified reason

== ENCOUNTER → 2025-07-04 | Outpatient (CLI) | payer OTHER ==
[~2025-07-04] MED LIST changes: +NABU-71 PO; +SUCR1TAB56 PO
== END ==
LOC: M SOG 07:38
PROVIDERS: ATTEND Physician Assistant
DX: S82.851D Displaced trimalleolar fracture of right lower leg, subsequent encounter for closed fracture with routine healing (principal)

== ENCOUNTER → 2025-07-12 | Outpatient (REF) | payer MEDICAID, OTHER | LOC: M SFHCLERA 16:54 | PROVIDERS: ATTEND Student in an Organized Health Care Education/Training Program | DX: R30.0 Dysuria (principal) ==